=== PATIENT | male | born 1970 | race Caucasian/White ===

== ENCOUNTER 2018-08-30 12:11 | Emergency (ER) | payer OTHER ==
[2018-08-30 12:20] VITALS: BP 140/68; PULSE 79; TEMP 98.2; BMI 28.2
[2018-08-30 14:10] LABS: BASO % 0.5 % (0-2.0); EOS % 6.2 % (0-4.5); HEMATOCRIT 45.5 % (35.4-49); HEMOGLOBIN 15.1 GM/dL (11.7-16.9); LYMPH % 9.9 % (8-40); MCH 26.7 pg (25.7-33.7); MCHC 33.2 g/dl (32.0-35.9); MEAN CELL VOLUME 80.4 fl (80-96); MEAN PLT VOLUME 7.9 fl (7.5-11.1); MONO % 6.2 % (3.8-10.2); NEUT % 77.2 % (42.8-82.8); PLATELET COUNT 266 K/MM3 (134-434); RBC 5.66 M/mm3 (4.00-5.60); RDW 13.9 % (11.9-15.9); WHITE BLOOD COUNT 9.9 K/mm3 (4.0-10.0)
[2018-08-30 14:27] LABS: ALBUMIN 3.4 g/dl (3.4-5.0); ALK PHOS 98 U/L (45-117); ANION GAP 4 MMOL/L (8-16); BILIRUBIN,TOTAL 0.4 mg/dL (0.2-1); BLOOD UREA NITROGEN 14 mg/dL (7-18); CALCIUM 8.6 mg/dL (8.5-10.1); CHLORIDE 104 mmol/L (98-107); CO2 30 mmol/L (21-32); CREATININE 0.9 mg/dL (0.55-1.3); GLUCOSE,RANDOM 217 mg/dL (74-106); POTASSIUM 3.8 mmol/L (3.5-5.1); SGOT/AST 18 U/L (15-37); SGPT/ALT 34 U/L (13-61); SODIUM 138 mmol/L (136-145); TOT PROT 6.3 g/dl (6.4-8.2)
[2018-08-30] MEDS ORDERED: OSELTAMIVIR PHOSPHATE 75 MG CAPSULE PO ONE (14:27)
--- NOTE | 2018-08-30 14:27 | PDOC ---
History of Present Illness - History of Present Illness Initial Comments: 08/30/18 14:17 48M with pmh of IDDM on insulin presents with URi symptoms and cough for the past 3 days with chest pain associated with coughing since last night getting worse. Pain is non radiating. Son has been diagnosed with the flu a few days ago. Patient cannot remember if he got a flu shot this year. <Otis Guthrie - Last Filed: 08/30/18 15:13> <Gladis Zuniga - Last Filed: 08/30/18 15:16> - General Chief Complaint: Chest Pain Stated Complaint: sORE THOART Time Seen by Provider: 08/30/18 13:22 Past History - Past Medical History COPD: No Diabetes: Yes (IDDM) HTN: Yes Hypercholesterolemia: Yes - Immunization History Immunization Up to Date: Yes - Suicide/Smoking/Psychosocial Hx Smoking History: Current every day smoker Number of Cigarettes Smoked Daily: 5 Information on smoking cessation initiated: No 'Breaking Loose' booklet given: 05/10/16 Hx Alcohol Use: No Drug/Substance Use Hx: No Substance Use Type: None <Otis Guthrie - Last Filed: 08/30/18 15:13> <Gladis Zuniga - Last Filed: 08/30/18 15:16> - Past Medical History Allergies/Adverse Reactions: Allergies Allergy/AdvReac Type Severity Reaction Status Date / Time No Known Allergies Allergy Verified 08/30/18 12:14 Home Medications: Ambulatory Orders Oseltamivir Phosphate [Tamiflu] 75 mg PO BID #10 capsule 08/30/18 *Physical Exam - Vital Signs Last Vital Signs Temp Pulse Resp BP Pulse Ox 98.2 F 79 16 140/68 98 08/30/18 12:14 08/30/18 12:14 08/30/18 12:14 08/30/18 12:14 08/30/18 12:14 <Otis Guthrie - Last Filed: 08/30/18 15:13> - Vital Signs Last Vital Signs Temp Pulse Resp BP Pulse Ox 98.2 F 79 16 140/68 98 08/30/18 12:14 08/30/18 12:14 08/30/18 12:14 08/30/18 12:14 08/30/18 12:14 <Gladsi Zuniga - Last Filed: 08/30/18 15:16> Moderate Sedation - Procedure Monitoring Vital Signs: Procedure Monitoring Vital Signs Temperature 98.2 F 08/30/18 12:14 Pulse Rate 79 08/30/18 12:14 Respiratory Rate 16 08/30/18 12:14 Blood Pressure 140/68 08/30/18 12:14 O2 Sat by Pulse Oximetry (%) 98 08/30/18 12:14 <Otis Guthrie - Last Filed: 08/30/18 15:13> - Procedure Monitoring Vital Signs: Procedure Monitoring Vital Signs Temperature 98.2 F 08/30/18 12:14 Pulse Rate 79 08/30/18 12:14 Respiratory Rate 16 08/30/18 12:14 Blood Pressure 140/68 08/30/18 12:14 O2 Sat by Pulse Oximetry (%) 98 08/30/18 12:14 <Gladis Zuniga - Last Filed: 08/30/18 15:16> ED Treatment Course - LABORATORY CBC & Chemistry Diagram: 08/30/18 14:00 08/30/18 14:00 - ADDITIONAL ORDERS Additional order review: 08/30/18 14:00 RBC 5.66 H MCV 80.4 MCHC 33.2 RDW 13.9 MPV 7.9 Neutrophils % 77.2 D Lymphocytes % 9.9 D Monocytes % 6.2 Eosinophils % 6.2 H Basophils % 0.5 - RADIOLOGY Radiology Studies Ordered: Category Date Time Status CHEST PA & LAT [RAD] Stat Radiology 08/30/18 13:35 Ordered <Otis Guthrie - Last Filed: 08/30/18 15:13> - LABORATORY CBC & Chemistry Diagram: 08/30/18 14:00 08/30/18 14:00 - ADDITIONAL ORDERS Additional order review: Laboratory Results 08/30/18 08/30/18 14:00 14:00 Sodium 138 Potassium 3.8 Chloride 104 Carbon Dioxide 30 Anion Gap 4 L BUN 14 Creatinine 0.9 Creat Clearance w eGFR > 60 Random Glucose 217 H Calcium 8.6 Total Bilirubin 0.4 AST 18 ALT 34 Alkaline Phosphatase 98 Troponin I < 0.02 Total Protein 6.3 L Albumin 3.4 08/30/18 14:00 RBC 5.66 H MCV 80.4 MCHC 33.2 RDW 13.9 MPV 7.9 Neutrophils % 77.2 D Lymphocytes % 9.9 D Monocytes % 6.2 Eosinophils % 6.2 H Basophils % 0.5 - Medications Given in the ED: ED Medications Discontinued Medications Generic Name Dose Route Start Last Admin Trade Name Jaylyn PRN Reason Stop Dose Admin Oseltamivir Phosphate 75 mg 08/30/18 14:27 08/30/18 14:41 Tamiflu - PO 08/30/18 14:28 75 mg ONCE ONE Administration <Gladis Zuniga - Last Filed: 08/30/18 15:16> Medical Decision Making - Medical Decision Making 08/30/18 14:42 48 with URI symptoms, cough and chest pain for 3 days. EKG with non signigicant st changed. Basic labs wnl. Positive for Flu A. CXR pending. Started on Tamiflu and discharged with recommendation., <Otis Guthrie - Last Filed: 08/30/18 15:13> *DC/Admit/Observation/Transfer - Discharge Dispostion Decision to Admit order: No <Otis Guthrie - Last Filed: 08/30/18 15:13> <Gladis Zuniga - Last Filed: 08/30/18 15:16> Diagnosis at time of Disposition: Influenza A - Discharge Dispostion Disposition: HOME Condition at time of disposition: Improved - Prescriptions Prescriptions: Oseltamivir Phosphate [Tamiflu] 75 mg PO BID #10 capsule - Referrals Referrals: Isai Arnold MD [Primary Care Provider] - - Patient Instructions Printed Discharge Instructions: How to Avoid a Cold or Flu Additional Instructions: 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 Take Tamiflu twice a day for 5 days. it may cause side effects such as nausea, vomiting diarrhea, headache or dizziness. given your diabetes history your immune system is not the strongest and the tamiflu may decrease your symptom course salt water gargles and warm lemon tea is appropriate as well for soothing qualities for sore throat/cough. minimize spread of infection given contagious nature, and cover your mouth and wash your hands adequately with soap and water. Stay well hydrated and rest. Avoid contact with the very young and the elderly or the chronically ill or the . Come back to the emergency department for any new, worsening or concerning symptoms such as persistent fever, cough, respiratory distress, dehydration or other concerns. - Post Discharge Activity
--- NOTE | 2018-08-30 14:28 | PDOC ---
Attending Attestation - Resident Resident Name: GuthrieOtis - ED Attending Attestation I have performed the following: I have examined & evaluated the patient, The case was reviewed & discussed with the resident, I agree w/resident's findings & plan - HPI HPI: 08/30/18 14:28 48M with pmh of IDDM on insulin presents with URi symptoms and cough for the past 3 days with chest pain associated with coughing - Physicial Exam PE: 08/30/18 14:33 NAD, malaised appearing, PERRL, EOMI, MMM, nl conjunctiva, anicteric; normal phonation. .neck supple. lungs clear, RRR, abdomen soft nontender. RICHEY x4, no focal neuro deficits. No peripheral edema. normal color for ethnicity, WWP. - Medical Decision Making 08/30/18 14:34 See HPI for details Vital signs reviewed, wnl. no fever here, no respiratory distress DDx. viral syndrome, influenza, pna. electrolyte/metabolic derangements, myocarditis, angina, arrhythmia, ACS. Prior notes reviewed, including admissions, discharges and consultations. laboratory results and imaging reviewed, basic labs and lytes wnl CXR_no consolidation or effusion, normal cardiac silhouette Cardiac panel_neg trop - less likely cardiac EKG normal sinus rhythm, no interval abnormalities, narrow QRS, ST and T wave segments and morphology normal. Nonspecific T wave abnormalities ED course: +influenza positive given DM history, offered and agree to tamiflu treatment x 5 days. side effect profile discussed respiratory precautions wear mask, hydration anti pyretics and analgesia otc avoid people, IC, young children and elderly to minimize spread of infection. Pt to be discharged in stable condition. Patient and family made aware of impression and plan, return precautions discussed (including but not limited to worsening pain or symptoms), fevers, or signs of infection, chest pain, respiratory distress, inability to tolerate oral intake, dehydration, syncope, or neurologic changes). Follow up with PMD as recommended, follow up information provided, take medications as instructed for duration of time. continue with supportive care, avoid triggers and precipitants. Patient does not suffer from an acute life-threatening medical condition at this time she is safe for outpatient follow-up. 08/30/18 14:36 08/30/18 15:13
--- NOTE | 2018-08-30 15:30 | EKG ---
Test Reason : Blood Pressure : / mmHG Vent. Rate : 081 BPM Atrial Rate : 081 BPM P-R Int : 148 ms QRS Dur : 086 ms QT Int : 368 ms P-R-T Axes : 066 014 066 degrees QTc Int : 427 ms POOR DATA QUALITY, INTERPRETATION MAY BE ADVERSELY AFFECTED NORMAL SINUS RHYTHM NONSPECIFIC ST ABNORMALITY ABNORMAL ECG NO PREVIOUS ECGS AVAILABLE Confirmed by RITA PHILLIPS MD ([id number]) on 08/30/2018 3:30:46 PM Referred By: Confirmed By:RITA PHILLIPS MD
== END 2018-08-30 15:20 | disposition home or self-care (01) ==
LOC: JER 12:11
DX: J09.X2 Influenza due to identified novel influenza A virus with other respiratory manifestations (principal); Z79.4 Long term (current) use of insulin; E11.9 Type 2 diabetes mellitus without complications; I10 Essential (primary) hypertension; E78.00 Pure hypercholesterolemia, unspecified
CPT/HCPCS: 36415; 71046-TC-FY; 80053; 84484; 85025; 87804; 93005; 93010; 99282-25

== ENCOUNTER 2020-11-26 10:53 | Emergency (ER) | payer OTHER ==
[2020-11-26 11:02] VITALS: BP 148/79; PULSE 72; TEMP 98.1; BMI 27.7
== END 2020-11-26 12:03 | disposition home or self-care (01) ==
LOC: JERFT 10:53
DX: S43.401A Unspecified sprain of right shoulder joint, initial encounter (principal)
CPT/HCPCS: 73030-TC-RT-FY; 73060-TC-RT-FY; 99284-25